=== PATIENT | male | born 1950 | race Caucasian/White ===

== ENCOUNTER 2017-01-24 15:54 | Emergency (ER) | payer OTHER ==
[2017-01-24 16:00] VITALS: RESP 16
--- NOTE | 2017-01-24 17:27 | EDPHY ---
General Narrative: CHIEF COMPLAINT: Unable to urinate HISTORY OF PRESENT ILLNESS: Patient complains of difficulty urinating. This started on Saturday. He says that he has been unable to void all since then. He has been unable to void completely for the past week. He has had increasing pain and pressure in the suprapubic abdomen. No flank pain. No fever chills. No nausea or vomiting. No constipation or diarrhea. No trauma or injury. He saw a physician at his primary care office today, and they recommended he come to the emergency department with for Mathews catheter placement. Does have a history of BPH. No history of TURP. No recent weight loss. No night sweats. No change in caliber of stool. No history of abdominal cancer. No other associated complaints or modifying factors. REVIEW OF SYSTEMS: Ten systems reviewed and are negative unless otherwise noted in the HPI PCP: Dr. Valderrama SPECIALISTS: Dr. Eleni Bass PAST MEDICAL HISTORY: Hypertension, dyslipidemia, BPH, coronary artery disease status post stents PAST SURGICAL HISTORY: Discussed SOCIAL HISTORY: Nonsmoker. No illicit substance use. Occasional alcohol user. He is a retired senior hardware engineer FAMILY HISTORY: Noncontributory EXAMINATION General Appearance: Alert, no distress Head: normocephalic, atraumatic Eyes: Pupils equal and round, no conjunctival pallor or injection ENT, Mouth: Mucous membranes moist Neck: Normal inspection, supple, non-tender Respiratory: No retractions or distress Cardiovascular: Regular rate and rhythm. No murmur Gastrointestinal: Abdomen is soft and mild distention. Tenderness in the suprapubic region. No guarding. No rigidity. No tympany. No CVA tenderness. : Mild edema at the distal penile shaft, just proximal to the glans. Circumcised. No erythema. No lesion. No abnormality of the testes. Neurological: A&O, nonfocal, normal gait Skin: Warm and dry, no rash no petechiae or purpura Extremities: Nontender, no pedal edema Psychiatric: Mood and affect normal DIFFERENTIAL DIAGNOSES: Including but not limited to acute urinary retention, BPH, cystitis, bladder calculus, renal colic, UTI MDM: 5:20 p.m. Acute urinary retention of patient with BPH. He has 1991 mL on bladder scanner at bedside. History examination match this. No testicular pain. Possibly early balanitis. Mathews catheter will be placed. Urinalysis will be sent. Vital signs stable. He is not on any anticoagulants. Will discuss with attending physician for outpatient management. 6:20 p.m. Patient re-evaluated. Mathews catheter was placed without complication. Urinalysis unremarkable. He is feeling significantly better and there is approximately 2 L of urine in the bag. He will be attached to a leg bag. Will discuss care of this. He will be instructed to contact his primary care physician and established urologist in the morning for further care. We discussed ED precautions including flank pain, nausea, vomiting, fever. We discussed return to ED for any abdominal pain. Patient is comfortable with this plan. He is feeling significantly better and stable for discharge home. - History Smoking Status: Never smoked - Objective Vital Signs: Initial Vital Signs Temperature (C) 97.9 F 01/24/17 15:55 Heart Rate 80 01/24/17 15:55 Respiratory Rate 16 01/24/17 15:55 Blood Pressure 160/86 H 01/24/17 15:55 O2 Sat (%) 97 01/24/17 15:55 O2 Delivery Mode Room Air Allergies/Adverse Reactions: No Known Allergies Allergy (Unverified 01/24/17 16:01) Home Medications: Medication Instructions Recorded Benicar 01/24/17 Crestor 01/24/17 Metoprolol ER-Hctz 100-12.5 mg 01/24/17 Laboratory Results: 01/24/17 18:05 Urine Color YELLOW Urine Appearance HAZY Urine pH 6.0 (5.0-7.5) Ur Specific [place] 1.009 (1.002-1.030) Urine Protein NEGATIVE (NEGATIVE) Urine Ketones NEGATIVE (NEGATIVE) Urine Blood 2+ H (NEGATIVE) Urine Nitrate NEGATIVE (NEGATIVE) Urine Bilirubin NEGATIVE (NEGATIVE) Urine Urobilinogen NEGATIVE EU EU (0.2-1.0) Ur Leukocyte Esterase TRACE H (NEGATIVE) Urine RBC 15-25 /hpf H /hpf (0-3) Urine WBC 5-10 /hpf H /hpf (0-3) Ur Epithelial Cells TRACE /lpf /lpf (NONE-1+) Urine Bacteria TRACE /hpf H /hpf (NONE SEEN) Urine Mucus TRACE /lpf /lpf (NONE-1+) Urine Glucose NEGATIVE (NEGATIVE) Departure - Departure Disposition: Home, Routine, Self-Care Clinical Impression: Acute retention of urine, BPH with urinary obstruction Condition: Good Instructions: Urinary Retention in Men (ED), Mathews Catheter Placement and Care (ED) Additional Instructions: 1. Mathews and leg bag care as discussed 2. Return to ED for any pain, fever, nausea, vomiting, difficulty passing urine in the bag, bloody urine, constipation 3. Contact primary care physician and urologist tomorrow morning. Referrals: Felipa Valderrama MD [Primary Care Provider] - As per Instructions Amy Bass MD [Medical Doctor] - As per Instructions
[2017-01-24 18:16] LABS: COLOR YELLOW; LEUKOCYTE ESTERASE,URINE TRACE (NEGATIVE); NITRITE,URINE NEGATIVE (NEGATIVE)
[2017-01-24 18:19] VITALS: PULSE 81
[2017-01-24 18:20] LABS: BACTERIA TRACE /hpf (NONE SEEN); MUCUS TRACE /lpf (NONE-1+); RBC,URINE 15-25 /hpf (0-3)
[2017-01-24 18:39] VITALS: BP 135/80; TEMP 98.6; O2SAT 99
== END 2017-01-24 18:48 | disposition home or self-care (01) ==
PROC: 0T9B70Z Drainage of Bladder with Drainage Device, Via Natural or Artificial Opening (ICD-10-PCS; principal; 2017-01-24)
DX: R33.9 Retention of urine, unspecified (principal); N40.1 Benign prostatic hyperplasia with lower urinary tract symptoms; B96.89 Other specified bacterial agents as the cause of diseases classified elsewhere; I10 Essential (primary) hypertension; I25.10 Atherosclerotic heart disease of native coronary artery without angina pectoris

== ENCOUNTER → 2018-07-16 | Outpatient (CLI) | payer OTHER, MEDICARE | DX: I25.10 Atherosclerotic heart disease of native coronary artery without angina pectoris (principal); Q23.1 Congenital insufficiency of aortic valve; I71.9 Aortic aneurysm of unspecified site, without rupture ==

== ENCOUNTER → 2018-07-24 | Outpatient (CLI) | payer OTHER, MEDICARE | LOC: BHFA 09:15 | PROVIDERS: ATTEND Physician Assistant | DX: Q23.1 Congenital insufficiency of aortic valve (principal); I25.10 Atherosclerotic heart disease of native coronary artery without angina pectoris; E78.5 Hyperlipidemia, unspecified; I10 Essential (primary) hypertension; I71.2 Thoracic aortic aneurysm, without rupture; I35.0 Nonrheumatic aortic (valve) stenosis; Z79.899 Other long term (current) drug therapy ==

== ENCOUNTER 2018-08-14 09:12 | Day surgery (SDC) | payer OTHER, MEDICARE ==
[2018-08-14] MEDS ORDERED: BENZOCAINE UNIT DOSE SPRAY HURRICAINE MM ONE (09:13)
[2018-08-14] MEDS ORDERED: fentaNYL 100 MCG/2 ML INJ IVP ONE (09:13)
[2018-08-14] MEDS ORDERED: NS 500 ML IV ONE (09:13)
[2018-08-14] MEDS ORDERED: MIDAZOLAM 2 MG/2 ML VIAL IVP ONE (09:13)
[2018-08-14] MEDS ORDERED: fentaNYL 100 MCG/2 ML INJ ONE ×3 (11:22→12:10)
[2018-08-14] MEDS ORDERED: MIDAZOLAM 2 MG/2 ML VIAL ONE ×2 (11:22→12:11)
--- NOTE | 2018-08-14 11:43 | PDPROPOC ---
Sedation Plan of Care Sedation Plan of Care: vital signs stable, mental status noted, patient educated of risks, benefits, alternatives, patient can tolerate sedation ASA Classification: ASA 2 Planned drugs: fentanyl, midazolam Mallampati Score: Class 3 Mallampati Reference Image: Patient passed 3-3-2 rule?: Yes
--- NOTE | 2018-08-14 11:44 | PDHPUP ---
History & Physical Update H&P update statement: This history and physical update is based on an assessment of the patient which was completed after admission or registration (within 24 hours), but prior to the surgery/procedure. H&P update: H&P reviewed & patient examined, changes noted (If the SELENA confirms the patient has critical or severe then he will proceed with C)
[2018-08-14] MEDS ORDERED: VERAPAMIL 5 MG/2 ML VIAL ONE (12:11)
[2018-08-14] MEDS ORDERED: HEPARIN 10,000 UNIT/10 ML MDV (1,000 UNIT/ML) ONE (12:11)
[2018-08-14] MEDS ORDERED: IOPAMIDOL (ISOVUE 370) 100 ML BTL IV ONE ×2 (12:11→14:44)
[2018-08-14] MEDS ORDERED: LIDOCAINE 1% 5 ML SDV ONE (12:15)
--- NOTE | 2018-08-14 12:39 | PDDXCAT ---
Diagnostic Cath Note - . Date: 08/14/18 [employer] Instructor: Eleni Indication: other (aortic stenosis, presurgical evaluation) - Procedure Access: left wrist Procedure: left heart catheterization, coronary angiography - Materials Left Heart Cath size: 5F Left Heart Cath materials: JL3.5, JR4.0, pigtail - Findings-Left Heart Catheterization LM: The left main is 8mm in size and bifurcates into an LAD and Circumflex system. There is no evidence of flow-limiting obstruction. There is KRUPA III flow. RCA: The right coronary artery is 2mm in size and non dominant. There is KRUPA III flow. - Findings-Right Heart Catheterization AO: Complications: NONE Estimated blood loss: <50ml Closure method: TR Band
[2018-08-14] MEDS ORDERED: ATROPINE SULFATE 1 MG/10 ML SYR IVP PRN (13:01)
[2018-08-14] MEDS ORDERED: HYDROCODONE/APAP 5/325 TAB PO PRN (13:01)
[2018-08-14] MEDS ORDERED: NITROGLYCERIN 0.4 MG BTL SL PRN (13:01)
[2018-08-14] MEDS ORDERED: ONDANSETRON 4 MG/2 ML VIAL IVP PRN (13:01)
[2018-08-14] MEDS ORDERED: OXYCODONE/APAP 5/325 TAB PO PRN (13:01)
[2018-08-15] MEDS ORDERED: ASPIRIN 81 MG CHEWABLE TAB PO SCH (09:00)
--- NOTE | 2018-08-18 07:42 | ECHO ---
[email or web address] [address] Main: [phone] Echocardiography Examination Transesophageal Name: BERE SRINIVASAN MR#: [id number] Study Date: 08/14/2018 Study Time: 10:01 AM Date of : 1950 Age: 68 year(s) Height: ( ) Weight: ( ) BSA: Gender: Male Examination: SELENA Contrast: Image Quality: Adequate Rhythm: Heart Rate: BP: / Indication: Evaluate Procedure Staff Referring Physician: [place] Production Line: Nisha Leon RDCS Reading Physician: Pablo Knowles MD Requesting Provider: Ordering Physician: Pablo Knowles MD Indication: Evaluate Acute complication: None Conclusions The patient has a truly bicuspid aortic valve with evidence that 1 of the leaflets is fixed and immobile. There is limited mobility of the other leaflet. The 2D and Doppler flow interrogation is consistent with severe aortic stenosis. Consultation with CV surgery is recommended. Left Ventricle: Normal global systolic left ventricular function. Aortic Valve: There is most likely severe aortic stenosis. Aortic leaflets exhibit marked calcification. The aortic valve is bicuspid. Findings Left Ventricle: Normal global systolic left ventricular function. Left Atrium Appendage: No thrombus is identified. IAS: Normal appearing atrial septum. Mitral Valve: Patient: BERE SRINIVASAN Study Date: 08/14/2018 Page 1 of 2 10:01 AM Mitral valve appears structurally normal. Mild mitral regurgitation. Aortic Valve: There is most likely severe aortic stenosis. Aortic leaflets exhibit marked calcification. The aortic valve is bicuspid. Tricuspid Valve: Tricuspid valve leaflets are structurally normal. Trivial tricuspid regurgitation. Pulmonic Valve: Pulmonic leaflets are structurally normal. No pulmonic valve regurgitation is evident. Exam Details Procedure Ordered: SELENA Procedure Status: Routine study Image Quality: Adequate Consent: Risks, alternatives of procedure explained to patient, informed consent obtained Probe Insertion: Attending trimmer machine Facility Location: Bedside (No Signature Object) Patient: BERE SRINIVASAN Study Date: 08/14/2018 Page 2 of 2 10:01 AM [id number]
== END 2018-08-14 16:15 | disposition home or self-care (01) ==
LOC: FCATH 09:12
PROVIDERS: ATTEND Internal Medicine Cardiovascular Disease
PROC: B246ZZ4 Ultrasonography of Right and Left Heart, Transesophageal (ICD-10-PCS; principal; 2018-08-14)
PROC: B2111ZZ Fluoroscopy of Multiple Coronary Arteries using Low Osmolar Contrast (ICD-10-PCS; principal; 2018-08-14)
DX: I35.0 Nonrheumatic aortic (valve) stenosis (principal); Q23.1 Congenital insufficiency of aortic valve; Z01.810 Encounter for preprocedural cardiovascular examination; I25.10 Atherosclerotic heart disease of native coronary artery without angina pectoris; E78.5 Hyperlipidemia, unspecified; I10 Essential (primary) hypertension; I71.2 Thoracic aortic aneurysm, without rupture
CPT/HCPCS: J1644; J2250; J3010; Q9967

== ENCOUNTER → 2018-09-01 | Outpatient (CLI) | payer OTHER, MEDICARE | LOC: FIMAGING 08:22 ==

== ENCOUNTER 2018-09-03 07:32 | Inpatient (IN) | payer OTHER, MEDICARE | END 2018-09-07 13:59 | disposition home or self-care (01) | LOC: F2N 07:32 → F2W 09-04 12:05 ==